=== PATIENT | female | born 1930 | race Caucasian/White ===

== ENCOUNTER 2018-08-22 07:39 | Inpatient (IN) | payer OTHER, BC ==
[2018-08-22 08:02] VITALS: BMI 23.6
[2018-08-22 08:55] LABS: BASO % 1.2 % (0-2.0); EOS % 2.7 % (0-4.5); HEMATOCRIT 30.3 % (32.4-45.2); HEMOGLOBIN 10.7 GM/dL (10.7-15.3); LYMPH % 21.2 % (8-40); MCH 33.4 pg (25.7-33.7); MCHC 35.2 g/dl (32.0-36.0); MEAN PLT VOLUME 8.9 fl (7.5-11.1); MONO % 9.5 % (3.8-10.2); NEUT % 65.4 % (42.8-82.8); PLATELET COUNT 292 K/MM3 (134-434); RBC 3.19 M/mm3 (3.60-5.2); RDW 12.6 % (11.6-15.6); WHITE BLOOD COUNT 5.7 K/mm3 (4.0-10.0)
[2018-08-22 09:09] LABS: ALBUMIN 3.6 g/dl (3.4-5.0); ALK PHOS 109 U/L (45-117); ANION GAP 6 MMOL/L (8-16); BILIRUBIN,TOTAL 0.2 mg/dL (0.2-1); BLOOD UREA NITROGEN 29 mg/dL (7-18); CALCIUM 9.6 mg/dL (8.5-10.1); CHLORIDE 102 mmol/L (98-107); CO2 28 mmol/L (21-32); CREATININE 1.2 mg/dL (0.55-1.3); GLUCOSE,RANDOM 118 mg/dL (74-106); POTASSIUM 4.8 mmol/L (3.5-5.1); SGOT/AST 14 U/L (15-37); SGPT/ALT 19 U/L (13-61); SODIUM 135 mmol/L (136-145); TOT PROT 6.9 g/dl (6.4-8.2)
--- NOTE | 2018-08-22 09:15 | PDOC ---
History of Present Illness <Vipin Travis - Last Filed: 08/22/18 11:21> - General History Source: Patient Exam Limitations: No Limitations - History of Present Illness Initial Comments: 08/22/18 09:16 HPI 87 YOF with h/o recent CAD/[place] s/p PCI on ASA and Plavix (June 2018 at [facility], [place]), HTN, HLD and bleeding PUD presenting with acute onset of BRBPR this morning when she went to make a BM. bright red blood filled the toilet bowl, but no stool. ate regular meal last night, no suspicious food intakes. Denies fever, chills, chest pain, SOB, palpitation, headache, dizziness, weakness, N, V, D, abdominal pain, bladder and bowel problems, leg swelling, No sick contacts or travel. recently started on ASA and Plavix in Jun 2018 when she undergone cardiac cath for STEMI last colonoscopy/sigmoidoscopy ~2 years ago, no abnormal findings. does have h/o PUD in the distant past. Allergies: statins, yeast, rice Past Medical History: CAD/[place] s/p PCI on ASA and Plavix Social history: Lives with family. No smoking. No alcohol. No illicit drugs. Surgical history: PCI PMD: Dr Felipe. ROS Constitutional: no fevers or chills. HEENT: no headache or dizziness. No congestion. No visual/hearing disturbances. CVS: no cp or syncope. Resp: no sob. No cough. Gastrointestinal: no abdominal pain, nausea or vomiting. +rectal bleeding Genitourinary: no urinary sx, hematuria. MUSCULOSKELETAL: No joint pain and swelling. No neck or back pain. SKIN: no redness or skin changes, no discharge, no rash. No wounds. Hematologic: no easy bruising/bleeding. NEUROLOGIC: No headache, dizziness, LOC or altered mental status. No weakness, numbness or tingling. Allergic/Immunologic: no allergies All other systems reviewed and negative, or as documented in HPI. PE: General: Well appearing, awake and alert, NAD. HEENT: NCAT, PERRL, EOMI, clear conjunctiva, anicteric, moist mucus membranes, clear oropharynx, no oral lesions.. Neck: neck supple, FROM Resp: CTAB, normal and even respirations, no respiratory distress CVS: RRR, no murmurs, 2+ peripheral pulses throughout, no peripheral edema Abdomen: soft, NTND, no peritoneal signs. Rectal exam: +macario hematochezia, no hemorrhoids or friable masses internally or externally Back: nontender, normal inspection and ROM MSK: no edema, [place] x4, ROM intact. No clubbing or cyanosis. normal bulk and tone. Neuro: alert, oriented appropriately; no focal neurologic deficits Skin: warm and well perfused, cap refill <2 sec, normal color 08/22/18 09:17 08/22/18 09:41 08/22/18 09:43 <Huong Banda - Last Filed: 08/22/18 11:29> - General Chief Complaint: Rectal Bleed Stated Complaint: RECTAL BLEEDING Time Seen by Provider: 08/22/18 08:44 Past History <Vipin Travis - Last Filed: 08/22/18 11:21> - Past Medical History Anemia: No Asthma: No Cancer: No Cardiac Disorders: Yes (STENT PLACEMENT) CVA: No COPD: No CHF: No Dementia: No Diabetes: No GI Disorders: Yes (duodenal bleed, diverticulosis, polyps) Disorders: No HTN: Yes Hypercholesterolemia: Yes Liver Disease: No Seizures: No Thyroid Disease: No - Surgical History Abdominal Surgery: No Appendectomy: No Cardiac Surgery: Yes (STENT) Cholecystectomy: No Lung Surgery: No Neurologic Surgery: No Orthopedic Surgery: No - Suicide/Smoking/Psychosocial Hx Smoking Status: No Smoking History: Never smoked Have you smoked in the past 12 months: No Number of Cigarettes Smoked Daily: 0 If you are a former smoker, when did you quit?: 40-50 yrs Hx Alcohol Use: No Drug/Substance Use Hx: No Substance Use Type: None Hx Substance Use Treatment: No <Huong Banda - Last Filed: 08/22/18 11:29> - Past Medical History Allergies/Adverse Reactions: Allergies Allergy/AdvReac Type Severity Reaction Status Date / Time red yeast rice Allergy Verified 08/22/18 07:51 Wiljnut-Ahd-Xtp Reductase Allergy Verified 08/22/18 07:51 Inhibitor Home Medications: Ambulatory Orders Aspirin 81 mg PO DAILY 08/22/18 Clopidogrel Bisulfate [Plavix -] 75 mg PO DAILY 08/22/18 Famotidine [Pepcid -] 20 mg PO DAILY 08/22/18 Hydrochlorothiazide [Hctz -] 12.5 mg PO DAILY 08/22/18 Losartan Potassium [Cozaar] 25 mg PO DAILY 08/22/18 Metoprolol Succinate [Toprol Xl] 25 mg PO DAILY 08/22/18 Abd/GI Specific PMHX - Complaint Specific PMHX GERD: No GI Ulcer Disease: No <Huong Banda - Last Filed: 08/22/18 11:29> *Physical Exam - Vital Signs Last Vital Signs Temp Pulse Resp BP Pulse Ox 98.3 F 78 18 132/49 L 98 08/22/18 07:58 08/22/18 07:58 08/22/18 07:58 08/22/18 07:58 08/22/18 08:35 <Vipin Travis - Last Filed: 08/22/18 11:21> - Vital Signs Last Vital Signs Temp Pulse Resp BP Pulse Ox 98.3 F 78 18 132/49 L 98 08/22/18 07:58 08/22/18 07:58 08/22/18 07:58 08/22/18 07:58 08/22/18 08:35 <Huong Banda - Last Filed: 08/22/18 11:29> Moderate Sedation - Procedure Monitoring Vital Signs: Procedure Monitoring Vital Signs Temperature 98.3 F 08/22/18 07:58 Pulse Rate 78 08/22/18 07:58 Respiratory Rate 18 08/22/18 07:58 Blood Pressure 132/49 L 08/22/18 07:58 O2 Sat by Pulse Oximetry (%) 98 08/22/18 08:35 <Vipin Travis - Last Filed: 08/22/18 11:21> - Procedure Monitoring Vital Signs: Procedure Monitoring Vital Signs Temperature 98.3 F 08/22/18 07:58 Pulse Rate 78 08/22/18 07:58 Respiratory Rate 18 08/22/18 07:58 Blood Pressure 132/49 L 08/22/18 07:58 O2 Sat by Pulse Oximetry (%) 98 08/22/18 08:35 <Huong Banda - Last Filed: 08/22/18 11:29> Heart Score/ECG Review - ECG Impressions Normal ECG: No Comment:: 08/22/18 09:54 EKG normal sinus rhythm, no interval abnormalities, wide QRS, ST and T wave segments and morphology normal.TWI in infero, V3 noted, 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, with prior EKG showing Inferior [place] <Huong Bandajassi - Last Filed: 08/22/18 11:29> ED Treatment Course - LABORATORY CBC & Chemistry Diagram: 08/22/18 08:44 08/22/18 08:44 - ADDITIONAL ORDERS Additional order review: Laboratory Results 08/22/18 08/22/18 08/22/18 08:44 08:44 08:44 PT with INR 10.80 INR 0.92 PTT (Actin FS) 26.0 Sodium 135 L Potassium 4.8 Chloride 102 Carbon Dioxide 28 Anion Gap 6 L BUN 29 H Creatinine 1.2 Creat Clearance w eGFR 42.70 Random Glucose 118 H Calcium 9.6 Total Bilirubin 0.2 AST 14 L ALT 19 Alkaline Phosphatase 109 Troponin I < 0.02 Total Protein 6.9 Albumin 3.6 Stool Occult Blood Blood Type A POSITIVE Antibody Screen Negative 08/22/18 08:35 PT with INR INR PTT (Actin FS) Sodium Potassium Chloride Carbon Dioxide Anion Gap BUN Creatinine Creat Clearance w eGFR Random Glucose Calcium Total Bilirubin AST ALT Alkaline Phosphatase Troponin I Total Protein Albumin Stool Occult Blood Positive Blood Type Antibody Screen 08/22/18 08:44 RBC 3.19 L MCV 95.0 MCHC 35.2 RDW 12.6 MPV 8.9 Neutrophils % 65.4 Lymphocytes % 21.2 D Monocytes % 9.5 Eosinophils % 2.7 D Basophils % 1.2 <Vipin Travis - Last Filed: 08/22/18 11:21> - LABORATORY CBC & Chemistry Diagram: 08/22/18 08:44 08/22/18 08:44 - ADDITIONAL ORDERS Additional order review: Laboratory Results 08/22/18 08/22/18 08:44 08:35 Sodium 135 L Potassium 4.8 Chloride 102 Carbon Dioxide 28 Anion Gap 6 L BUN 29 H Creatinine 1.2 Creat Clearance w eGFR 42.70 Random Glucose 118 H Calcium 9.6 Total Bilirubin 0.2 AST 14 L ALT 19 Alkaline Phosphatase 109 Total Protein 6.9 Albumin 3.6 Stool Occult Blood Positive 08/22/18 08:44 RBC 3.19 L MCV 95.0 MCHC 35.2 RDW 12.6 MPV 8.9 Neutrophils % 65.4 Lymphocytes % 21.2 D Monocytes % 9.5 Eosinophils % 2.7 D Basophils % 1.2 <Huong Banda - Last Filed: 08/22/18 11:29> Medical Decision Making - Medical Decision Making Several calls made to [facility] office for admission at 9:42 am, 10:17am , 10:36am and 11:03 am with no call back. Paged Dr. Felipe cell at 11:12 am with no answer. As per first 2 calls to Answering service, hospitalist was to be contacted for admission. Received call back from Dr. Felipe at 11:26am. Case discussed with Dr. Banda. Documentation prepared by Vipin Travis, acting as behavioral medical director for Huong Banda MD. 08/22/18 11:21 <Vipin Travis - Last Filed: 08/22/18 11:21> - Medical Decision Making 08/22/18 09:45 hpi as documented VS reviewed, wnl, normotensive. DDX. UGIB, peptic/duodenal ulcer, gastritis, LGIB, diverticular bleed, AVM, polyp bleed, perf viscus. anemia. electrolyte/metabolic derangements no abdominal sx, no peritoneal findings, no tenderness to palp no cp or sob. labs and lytes reviewed, generally wnl, mild anemia noted from prior, but no transfusion indicated for now. coags normal. txs ordered EKG normal sinus rhythm, no interval abnormalities, wide QRS, ST and T wave segments and morphology normal.TWI in infero, V3 noted, 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, with prior EKG showing Inferior [place] trop neg, no e/o ischemia or demand. GIB likely LGIB with hematochezia, no tarry or melanotic stools on exam, PPI 40mg IV x1 dose, does not require gtt. PIVs x2, keeping NPO GI cs with Dr Salguero, will come to eval. cards cs with Dr Kaiser/Sh[facility] group - should remain on Plavix admitting to telemetry for GIB, suspecting diverticular vs Lower GIB - close monitoring, cards and GI cs, continued workup admit and s/o to Dr Felipe. 08/22/18 11:28 08/22/18 11:28 <Huong Banda - Last Filed: 08/22/18 11:29> *DC/Admit/Observation/Transfer <Vipin Travis - Last Filed: 08/22/18 11:21> - Discharge Dispostion Decision to Admit order: Yes Decision to Admit order Date/Time: 08/22/18 09:55 Decision to Admit Order Category Date Time Status Decision to Admit to Hospital Routine Admission 08/22/18 09:16 Active <Huong Banda - Last Filed: 08/22/18 11:29> Diagnosis at time of Disposition: Hematochezia, GIB (gastrointestinal bleeding) - Discharge Dispostion Condition at time of disposition: Guarded - Referrals Referrals: Cierra Felipe MD [Primary Care Provider] - - Patient Instructions - Post Discharge Activity
[2018-08-22 09:39] LABS: INR 0.92 (0.83-1.09); PROTHROMBIN TIME (PATIENT) 10.8 SEC (9.7-13.0)
[2018-08-22] MEDS ORDERED: PANTOPRAZOLE SODIUM 40 MG VIAL IVPUSH ONE (11:26)
[2018-08-22] MEDS ORDERED: PANTOPRAZOLE SODIUM 40 MG VIAL ONE ×2 (11:40→19:49)
--- NOTE | 2018-08-22 13:00 | EKG ---
Test Reason : Blood Pressure : / mmHG Vent. Rate : 068 BPM Atrial Rate : 068 BPM P-R Int : 158 ms QRS Dur : 116 ms QT Int : 414 ms P-R-T Axes : 067 000 -05 degrees QTc Int : 440 ms NORMAL SINUS RHYTHM LOW VOLTAGE QRS INCOMPLETE RIGHT BUNDLE BRANCH BLOCK CANNOT RULE OUT INFERIOR INFARCT (CITED ON OR BEFORE 06-JUL-2018) ABNORMAL ECG Confirmed by Trae Jeffers MD ([id number]) on 08/22/2018 12:59:51 PM Referred By: Confirmed By:Trae Jeffers MD
--- NOTE | 2018-08-22 13:12 | CON.GI ---
Consult Consult Specialty:: GI: Dr. Betts covering for Dr. Crabtree who resumes care Referred by:: Dr. Cierra Felipe Reason for Consultation:: Rectal bleeding - History of Present Illness Chief Complaint: Rectal bleeding History of Present Illness: 87F admitted for evaluation of rectal bleeding. She states that she had an episode of painless bright red blood per rectum at around 7AM. She came to the ER in a cab. Triage vitals revealed her to be hypertensive with normal pulse rate (however beta blocked). She denied associated chest pain, lightheadedness. She denied recent change in bowel habits, constipation, anorectal pain. In review of the Inductly system, she last had a colonoscopy 2011. It revealed an angulated sigmoid colon, severe sigmoid diverticulosis and led to the removal of serrated recta adenoma. Ms. Sullivan also explains that she was admitted to [facility] in 2006 for evaluiation of severe rectal bleeding. She remembers being admitted to the ICU and being told of a bleeding ulcer. There has been no bleeding since admission. She recently underwent cardiac cath 07/06 that led to placement of a 2nd cardiac stent and has been maintained on ASA/ Plavix. She denies OTC NSAID use and has been maintained on famotidine BID. She complains of easy bruisability since being on ASA/Plavix. She had her initial stent placed 2006. - History Source History Provided By: Patient, Medical Record Limitations to Obtaining History: No Limitations - Past Medical History Cardio/Vascular: Yes: CAD, HTN, Hyperlipdemia Gastrointestinal: Yes: Diverticulosis, Other (History of GI bleed 2006. ? 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 Place of : [facility] History of Recent Travel: No Home Medications - Allergies Allergies/Adverse Reactions: Allergies Allergy/AdvReac Type Severity Reaction Status Date / Time red yeast rice Allergy Verified 08/22/18 07:51 Pxwtxod-Sdj-Rjp Reductase Allergy Verified 08/22/18 07:51 Inhibitor - Home Medications Home Medications: Ambulatory Orders Aspirin 81 mg PO DAILY 08/22/18 Clopidogrel Bisulfate [Plavix -] 75 mg PO DAILY 08/22/18 Famotidine [Pepcid -] 20 mg PO DAILY 08/22/18 Hydrochlorothiazide [Hctz -] 12.5 mg PO DAILY 08/22/18 Losartan Potassium [Cozaar] 25 mg PO DAILY 08/22/18 Metoprolol Succinate [Toprol Xl] 25 mg PO DAILY 08/22/18 Family Disease History - Family Disease History Family Disease History: Other: Father (: 91: old age), Mother (: 62: [place]) , Brother (2, 1 from [place], 1 from colon cancer diagnosed in his 60's), Sister (2, 1 from [place], 1 from brain aneurysm), Son (None), Daughter ( None) Review of Systems - Review of Systems Constitutional: denies: Fever Cardiovascular: denies: Chest Pain Respiratory: denies: SOB Gastrointestinal: reports: Rectal Bleeding. denies: Abdominal Pain, Bloating, Constipation, Diarrhea, Melena, Nausea, Vomiting, Vomiting Blood Physical Exam-GI Vital Signs: Vital Signs Temperature --- 08/22/18 1130 Pulse Rate 78 08/22/18 1130 Respiratory Rate 18 08/22/18 1130 Blood Pressure 180/65 08/22/18 1130 O2 Sat by Pulse Oximetry (%) 99% on RA 08/22/18 1130 Constitutional: Yes: Calm Eyes: No: Sclera Icterus Cardiovascular: Yes: Regular Rate and Rhythm. No: Murmur Respiratory: Yes: CTA Bilaterally Gastrointestinal Inspection: No: Distention, Scars ...Auscultate: Yes: Normoactive Bowel Sounds ...Palpate: Yes: Soft. No: Hepatomegaly, Splenomegaly, Tenderness ...Percussion: No: Tympanitic ...Rectal Exam: Yes: Other (No external lesions, no masses, dark red blood in rectal vault.) Edema: No (No LE edema) Neurological: Yes: Alert, Oriented Labs: CBC, BMP 08/22/18 08:44 08/22/18 08:44 INR, PTT INR 0.92 (0.83-1.09) 08/22/18 08:44 Hepatic Panel Total Bilirubin 0.2 mg/dL (0.2-1) 08/22/18 08:44 AST 14 U/L (15-37) L 08/22/18 08:44 ALT 19 U/L (13-61) 08/22/18 08:44 Alkaline Phosphatase 109 U/L (45-117) 08/22/18 08:44 Albumin 3.6 g/dl (3.4-5.0) 08/22/18 08:44 Problem List - Problems (1) Hematochezia Assessment/Plan: No repeat bleeding episode since admission. Given hemodyamic stability, I suspect the bleeding to be lower GI in origin as opposed to brisk upper GI bleed. Given age and her previous colonoscopy findings, diverticular hemorrhage would be higher in the differential, likely potentiated by dual antiplatelet therapy. I explained this to Ms. Sullivan. I explained that to exclude alternate etiologies such as bleeding polyp, tumor of the intestinal tract such as colon cancer, EGD/Colonoscopy can be undertaken for further intraluminal evaluation. Timing of the procedure will be based on her clinical course. As she has been hemodyamically stable without persistent bleeding, I have placed Ms. Sullivan on a clear liquid diet for potential bowel preparation tomorrow for now: Monitor H/H Admit to monitored setting. If persistent active bleeding / compromised hemodynamics, transfer to ICU and make NPO Repeat CBC ordered for this afternoon as well as AM labs Ms. Sullivan has fresh placed cardiac stent. Per conversation with Dr. Kaiser, if an antiplatelt agent needed to be held, it could be ASA with continued plavix. Will attempt to maintain both antiplatelet agents so as to avoid potential stent thrombosis complications. Code(s): K92.1 - MELENA
[2018-08-22 13:42] LABS: HEMATOCRIT 32.3 % (32.4-45.2); HEMOGLOBIN 11.2 GM/dL (10.7-15.3); MCH 33.5 pg (25.7-33.7); MCHC 34.6 g/dl (32.0-36.0); MEAN CELL VOLUME 96.9 fl (80-96); MEAN PLT VOLUME 9.1 fl (7.5-11.1); PLATELET COUNT 308 K/MM3 (134-434); RBC 3.33 M/mm3 (3.60-5.2); RDW 12.5 % (11.6-15.6); WHITE BLOOD COUNT 6.3 K/mm3 (4.0-10.0)
[2018-08-22] MEDS ORDERED: CLOPIDOGREL BISULFATE 75 MG TABLET (FP) ONE (19:48)
[2018-08-22] MEDS ORDERED: TOPIRAMATE 25 MG TABLET (FP) ONE (19:49)
[2018-08-23 07:53] LABS: BASO % 0.9 % (0-2.0); HEMATOCRIT 29.7 % (32.4-45.2); HEMOGLOBIN 10.2 GM/dL (10.7-15.3); LYMPH % 29.9 % (8-40); MCH 32.8 pg (25.7-33.7); MCHC 34.3 g/dl (32.0-36.0); MEAN CELL VOLUME 95.6 fl (80-96); MEAN PLT VOLUME 8.8 fl (7.5-11.1); MONO % 12.6 % (3.8-10.2); NEUT % 52.6 % (42.8-82.8); PLATELET COUNT 299 K/MM3 (134-434); RBC 3.11 M/mm3 (3.60-5.2); RDW 12.5 % (11.6-15.6); WHITE BLOOD COUNT 4.7 K/mm3 (4.0-10.0)
[2018-08-23 08:19] LABS: ALBUMIN 3.4 g/dl (3.4-5.0); ALK PHOS 100 U/L (45-117); ANION GAP 6 MMOL/L (8-16); BILIRUBIN,TOTAL 0.3 mg/dL (0.2-1); BLOOD UREA NITROGEN 23 mg/dL (7-18); CALCIUM 9.2 mg/dL (8.5-10.1); CHLORIDE 102 mmol/L (98-107); CO2 29 mmol/L (21-32); CREATININE 0.9 mg/dL (0.55-1.3); GLUCOSE,RANDOM 97 mg/dL (74-106); POTASSIUM 4.5 mmol/L (3.5-5.1); SGOT/AST 12 U/L (15-37); SGPT/ALT 19 U/L (13-61); SODIUM 137 mmol/L (136-145); TOT PROT 6.5 g/dl (6.4-8.2)
--- NOTE | 2018-08-23 09:39 | CON.CARD ---
Consult Consult Specialty:: Cardiology Referred by:: Emergency Medicine Reason for Consultation:: DAPT management - History of Present Illness Chief Complaint: Hematochezia History of Present Illness: 87 yo with h/o CAD s/p BMS distal RCA 2006 recent inferior wall [place] s/p Medtronic Mauri 2.75 x 18 mm VLADIMIR distal RCA 06/2018 LV fxn preserved, normal LVEDP, mild inferior HK, PUD, hyperlipidemia with multiple medication intolerances but tolerates Livalo, presented for painless rectal bleeding. In 2011, colonoscopy showed angulated sigmoid colon, severe sigmoid diverticulosis and led to the removal of serrated rectal adenoma. Ms. Sullivan reports that she was admitted to [facility] in 2006 for evaluiation of severe rectal bleeding and also has h/o PUD. She denies OTC NSAID use and has been maintained on famotidine BID. She complains of easy bruisability since being on ASA/Plavix. Hgb stable, denies chest pain, dyspnea, near or true syncope, palpitations, orthopnea, PND or LE edema. - History Source History Provided By: Patient Limitations to Obtaining History: No Limitations - Past Medical History Cardio/Vascular: Yes: CAD, HTN, Hyperlipdemia Gastrointestinal: Yes: Diverticulosis, Other (History of GI bleed 2006. ? 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 History of Recent Travel: No Home Medications - Allergies Allergies/Adverse Reactions: Allergies Allergy/AdvReac Type Severity Reaction Status Date / Time red yeast rice Allergy Verified 08/22/18 07:51 Pwgdvcs-Ifi-Uwa Reductase Allergy Verified 08/22/18 07:51 Inhibitor - Home Medications Home Medications: Ambulatory Orders Aspirin 81 mg PO DAILY 08/22/18 Clopidogrel Bisulfate [Plavix -] 75 mg PO DAILY 08/22/18 Famotidine [Pepcid -] 20 mg PO DAILY 08/22/18 Hydrochlorothiazide [Hctz -] 12.5 mg PO DAILY 08/22/18 Losartan Potassium [Cozaar] 25 mg PO DAILY 08/22/18 Metoprolol Succinate [Toprol Xl] 25 mg PO DAILY 08/22/18 Family Disease History - Family Disease History Family Disease History: Other: Father (: 91: old age), Mother (: 62: [place]) , Brother (2, 1 from [place], 1 from colon cancer diagnosed in his 60's), Sister (2, 1 from [place], 1 from brain aneurysm), Son (None), Daughter ( None) Review of Systems - Review of Systems Gastrointestinal: reports: Rectal Bleeding Vital Signs: Vital Signs Temperature 97.4 F L 08/23/18 07:14 Pulse Rate 79 08/23/18 07:14 Respiratory Rate 20 08/23/18 07:14 Blood Pressure 122/55 L 08/23/18 07:14 O2 Sat by Pulse Oximetry (%) 98 08/23/18 07:14 Constitutional: Yes: No Distress, Calm Neck: Yes: Supple Respiratory: Yes: Regular, CTA Bilaterally Gastrointestinal: Yes: Normal Bowel Sounds, Soft Cardiovascular: Yes: Regular Rate and Rhythm JVD: No Carotid Bruit: No Heart Sounds: Yes: S1, S2 Edema: No - Other Data Labs, Other Data: CBC, BMP 08/23/18 06:30 08/23/18 06:30 INR, PTT INR 0.92 (0.83-1.09) 08/22/18 08:44 Troponin, BNP 08/22/18 08:44 Troponin I < 0.02 Troponin, BNP 08/22/18 08:44 Troponin I < 0.02 NSR @ 68 IRBBB, old inferior infarct Problem List - Problems (1) Hypertensive cardiovascular disease Code(s): I11.9 - HYPERTENSIVE HEART DISEASE WITHOUT HEART FAILURE Qualifiers: Heart failure presence: without heart failure Qualified Code(s): I11.9 - Hypertensive heart disease without heart failure (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 Pre-procedure cardiovascular evaluation prior to EGD/colonoscopy 2. Hematochezia suspect diverticular bleed 3. Previous h/o bleeding PUD 4. CAD s/p IWMI s/p VLADIMIR distal RCA 06/2018 5. Hyperlipidemia with multiple drug intolerances, but does tolerate Livalo 2 qod 6. Hypertensive cardiovascular disease P:1. Monitor Hgb and transfuse as needed 2. Given recent LHC and revascularization without recurrent symptoms of acute coronary syndrome, decompensated CHF or malignant arrhythmia, may proceed with EGD and colonoscopy from CV-standpoint without further testing. Regarding DAPT management, may d/c ASA if an antiplatelet agent needs to be held with continued Plavix 75 qd to decrease stent thrombosis risk 3. Continue Plavix 75 qd, Protonix 40 qd, losartan 25 qd, Toprol XL 25 qd 4. Thank you for consultative opportunity
[2018-08-23] MEDS: metoPROLOL SUCCINATE 25 MG TAB.SR.24H (FP) PO SCH (10:52)
[2018-08-23] MEDS: PANTOPRAZOLE SODIUM 40 MG VIAL IVPUSH SCH (10:52)
[2018-08-23] MEDS: CLOPIDOGREL BISULFATE 75 MG TABLET (FP) PO SCH (10:52)
--- NOTE | 2018-08-23 12:00 | PN ---
GI Progress Note Subjective: GI NOte: Dr Betts's consult is appreciated. NO bleeding since yesterday. Had no pain. Discussed the as with Dr. Vegas who has granted the okay to proceed with EGD and colonoscopy . I have discussed both procedures in detail with Shari. I have informed her of the potential for such complications as perforation and hemorrhage and the fact that I will not be able to remove polyps or take biopsies since her Plavix cannot be interrupted. She tells me that she had a recent course of Indocin for a gout flare. She has granted consent for both procedures which I will do tomorrow. - Objective Vital Signs: Vital Signs Temperature 98.2 F 08/23/18 10:55 Pulse Rate 89 08/23/18 10:55 Respiratory Rate 18 08/23/18 10:55 Blood Pressure 134/56 L 08/23/18 10:55 O2 Sat by Pulse Oximetry (%) 98 08/23/18 10:55 Laboratory Tests 08/22/18 08/22/18 08/23/18 08:44 13:32 06:30 Hgb 10.7 11.2 10.2 L Constitutional: No Distress ...Auscultate: Yes: Normoactive Bowel Sounds ...Palpate: Yes: Soft, Other (nontender) Labs: CBC, BMP 08/23/18 06:30 08/23/18 06:30 INR, PTT INR 0.92 (0.83-1.09) 08/22/18 08:44 Assessment/Plan Impression: Resolving diverticular bleed but other etiologies need to be exclude as she continues to require A/C Cardiologically cleared for endoscopies by Dr Kaiser Plan: -- Prep today for EGD and colonoscopy tomorrow, informed consent obtained Problem List - Problems (1) GIB (gastrointestinal bleeding) Assessment/Plan: I agree that a diverticular bleed is most likely but bleeding AVMs and ischemic colitis are still possible. Given her Hb stability this may prove to be hemorrhoidal in origin. Given her Indocin usage and previous peptic ulcer bleed , both an EGD and colonoscopy will be undertaken tomorrow. Code(s): K92.2 - GASTROINTESTINAL HEMORRHAGE, UNSPECIFIED (2) History of adenomatous polyp of colon Code(s): Z86.010 - PERSONAL HISTORY OF COLONIC POLYPS (3) Diverticulosis Code(s): K57.90 - DVRTCLOS OF INTEST, PART UNSP, W/O PERF OR ABSCESS W/O BLEED (4) Hematochezia Code(s): K92.1 - MELENA (6) S/P coronary artery stent placement Code(s): Z95.5 - PRESENCE OF CORONARY ANGIOPLASTY IMPLANT AND GRAFT
[2018-08-23] MEDS ORDERED: PEG3350/SOD SULF,BICARB,CL/KCL 4,000 ML SOLN.RECON PO ONE (12:04)
--- NOTE | 2018-08-23 13:49 | HP ---
Admitting History and Physical - Primary Care Physician PCP: Cierra Felipe - Admission History of Present Illness: patient seen and examined in the emergency room Chart reviewed As per emergency room records 87 YOF with h/o recent CAD/PR s/p PCI on ASA and Plavix (June 2018 at [facility]), HTN, HLD and bleeding PUD presenting with acute onset of BRBPR this morning when she went to make a BM. bright red blood filled the toilet bowl, but no stool. ate regular meal last night, no suspicious food intakes. Denies fever, chills, chest pain, SOB, palpitation, headache, dizziness, weakness, N, V, D, abdominal pain, bladder and bowel problems, leg swelling, No sick contacts or travel. recently started on ASA and Plavix in Jun 2018 when she undergone cardiac cath for STEMI last colonoscopy/sigmoidoscopy ~2 years ago, no abnormal findings. does have h/o PUD in the distant past. Allergies: statins, yeast, rice Past Medical History: CAD/PR s/p PCI on ASA and Plavix Social history: Lives with family. No smoking. No alcohol. No illicit drugs. all above confirmed with patient Patient at present comfortable Patient also recently taken NSAIDs due to knee pain At present not bleeding denies abdominal pain All consults noted---Seen by cardiology and GI scheduled for endoscopy tomorrow History Source: Patient Limitations to Obtaining History: No Limitations - Past Medical History Cardiovascular: Yes: CAD, HTN, Hyperlipdemia Gastrointestinal: Yes: Diverticulosis, Other (History of GI bleed 2006. ? 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 History of Recent Travel: No Home Medications - Allergies Allergies/Adverse Reactions: Allergies Allergy/AdvReac Type Severity Reaction Status Date / Time red yeast rice Allergy Verified 08/22/18 07:51 Wnuduyf-Gmh-Sum Reductase Allergy Verified 08/22/18 07:51 Inhibitor - Home Medications Home Medications: Ambulatory Orders Aspirin 81 mg PO DAILY 08/22/18 Clopidogrel Bisulfate [Plavix -] 75 mg PO DAILY 08/22/18 Famotidine [Pepcid -] 20 mg PO DAILY 08/22/18 Hydrochlorothiazide [Hctz -] 12.5 mg PO DAILY 08/22/18 Losartan Potassium [Cozaar] 25 mg PO DAILY 08/22/18 Metoprolol Succinate [Toprol Xl] 25 mg PO DAILY 08/22/18 Family Disease History - Family Disease History Family Disease History: Other: Father (: 91: old age), Mother (: 62: [place]) , Brother (2, 1 from [place], 1 from colon cancer diagnosed in his 60's), Sister (2, 1 from [place], 1 from brain aneurysm), Son (None), Daughter ( None) Review of Systems - Review of Systems Constitutional: reports: No Symptoms Eyes: reports: No Symptoms HENT: reports: No Symptoms Neck: reports: No Symptoms Cardiovascular: reports: No Symptoms Respiratory: reports: No Symptoms Gastrointestinal: reports: Rectal Bleeding Psychiatric: reports: Anxiety (mild anxiety) Physical Examination Vital Signs: Vital Signs Temperature 98.2 F 08/23/18 10:55 Pulse Rate 89 08/23/18 10:55 Respiratory Rate 18 08/23/18 10:55 Blood Pressure 134/56 L 08/23/18 10:55 O2 Sat by Pulse Oximetry (%) 98 08/23/18 10:55 Constitutional: Yes: No Distress, Calm, Anxious (mild anxiety) Eyes: Yes: Conjunctiva Clear Neck: Yes: Supple Cardiovascular: Yes: Regular Rate and Rhythm Respiratory: Yes: CTA Bilaterally Gastrointestinal: Yes: Normal Bowel Sounds, Soft Edema: No Neurological: Yes: WNL, Alert Psychiatric: Yes: Alert Labs: CBC, BMP 08/23/18 06:30 08/23/18 06:30 Imaging - Results Chest X-ray: Report Reviewed X-ray: Report Reviewed EKG: Report Reviewed Problem List - Problems (1) GIB (gastrointestinal bleeding) Code(s): K92.2 - GASTROINTESTINAL HEMORRHAGE, UNSPECIFIED (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 Assessment/Plan clinically stable monitor closely in telemetry Plavix to be continued with caution--- Due to recent stenting--- as per cardiology recommendation Monitor CBC Scheduled for endoscopy--tomorrow Medically stable for same Will follow Discussed with nursing staff also
[2018-08-23] MEDS ORDERED: BISACODYL 5 MG TABLET.DR (FP) PO ONE (18:00)
[2018-08-23 18:45] LABS: BASO % 0.8 % (0-2.0); EOS % 1.2 % (0-4.5); HEMATOCRIT 27.6 % (32.4-45.2); HEMOGLOBIN 9.7 GM/dL (10.7-15.3); MCH 33.6 pg (25.7-33.7); MCHC 34.9 g/dl (32.0-36.0); MEAN CELL VOLUME 96.1 fl (80-96); MEAN PLT VOLUME 8.7 fl (7.5-11.1); MONO % 8.2 % (3.8-10.2); NEUT % 70.8 % (42.8-82.8); PLATELET COUNT 289 K/MM3 (134-434); RBC 2.88 M/mm3 (3.60-5.2); RDW 12.4 % (11.6-15.6)
--- NOTE | 2018-08-23 23:06 | PN ---
Progress Note (short form) - Note Progress Note: GI NOte: Bowel prep cancelled after brisk LGI bleeding developed after 3 cups. A stat CTA was done and discussed with Dr. Ellis. It is inconclusive for a bleed with areas in the sigmoid and descending colon that he feels are artifactual. Stat Hb was 9.8. Will keep NPO and observe closely. Procedures cancelled. Problem List - Problems (1) GIB (gastrointestinal bleeding) Code(s): K92.2 - GASTROINTESTINAL HEMORRHAGE, UNSPECIFIED (2) History of adenomatous polyp of colon Code(s): Z86.010 - PERSONAL HISTORY OF COLONIC POLYPS (3) Diverticulosis Code(s): K57.90 - DVRTCLOS OF INTEST, PART UNSP, W/O PERF OR ABSCESS W/O BLEED (4) Hematochezia Code(s): K92.1 - MELENA (6) S/P coronary artery stent placement Code(s): Z95.5 - PRESENCE OF CORONARY ANGIOPLASTY IMPLANT AND GRAFT
[2018-08-24] MEDS: DEXTROSE 5%-0.45% SALINE 1,000 ML IV SCH ×2 (10:41→18:45)
[2018-08-24] MEDS: CLOPIDOGREL BISULFATE 75 MG TABLET (FP) PO SCH (10:46)
[2018-08-24] MEDS: metoPROLOL SUCCINATE 25 MG TAB.SR.24H (FP) PO SCH (10:47)
[2018-08-24] MEDS: PANTOPRAZOLE SODIUM 40 MG VIAL IVPUSH SCH (10:47)
--- NOTE | 2018-08-24 11:29 | PN ---
Progress Note (short form) - Note Progress Note: Events noted had bleeding last night resolved on its own no abd pain no distress Vital Signs - 24 hr 08/23/18 08/23/18 08/24/18 19:00 23:41 01:50 Temperature 97.7 F 98.1 F Pulse Rate 68 78 Respiratory 18 18 Rate Blood Pressure 137/61 132/57 L O2 Sat by Pulse 97 Oximetry (%) 08/24/18 08/24/18 08/24/18 06:00 07:00 09:00 Temperature 97.9 F Pulse Rate 82 Respiratory 18 Rate Blood Pressure 138/74 O2 Sat by Pulse 95 95 Oximetry (%) 08/24/18 08/24/18 10:00 13:35 Temperature 97.5 F L 97.9 F Pulse Rate 88 79 Respiratory 20 18 Rate Blood Pressure 132/76 142/59 L O2 Sat by Pulse Oximetry (%) Current Medications Generic Name Dose Route Start Last Admin Trade Name Freq PRN Reason Stop Dose Admin Bisacodyl 20 mg 08/26/18 18:00 Dulcolax - PO 08/26/18 18:01 ONCE ONE Clopidogrel Bisulfate 75 mg 08/23/18 10:00 08/24/18 10:46 Plavix - PO 75 mg DAILY RENE Administration Dextrose/Sodium Chloride 1,000 mls @ 125 mls/hr 08/23/18 18:30 08/24/18 10:41 D5-1/2ns - IV 125 mls/hr ASDIR RENE Administration Metoprolol Succinate 25 mg 08/23/18 10:00 08/24/18 10:47 Toprol Xl - PO 25 mg DAILY RENE Administration Pantoprazole Sodium 40 mg 08/23/18 10:00 08/24/18 10:47 Protonix Iv IVPUSH 40 mg DAILY RENE Administration Polyethylene Glycol 17 gm 08/24/18 22:00 Miralax (For Daily Use) - PO BID RENE Polyethylene Glycol/Electrolytes 4,000 ml 08/26/18 09:00 Golytely Solution - PO 08/26/18 09:01 ONCE ONE Laboratory Results - last 24 hr 08/23/18 08/24/18 08/24/18 18:00 13:20 13:20 WBC 5.0 4.8 RBC 2.88 L 2.45 L Hgb 9.7 L 8.1 L Hct 27.6 L 23.5 L MCV 96.1 H 95.7 MCH 33.6 32.8 MCHC 34.9 34.3 RDW 12.4 12.4 Plt Count 289 290 MPV 8.7 8.5 Absolute Neuts (auto) 3.5 2.5 Neutrophils % 70.8 D 52.9 D Lymphocytes % 19.0 D 30.8 D Monocytes % 8.2 12.1 H Eosinophils % 1.2 3.3 D Basophils % 0.8 0.9 Nucleated RBC % 0 0 PT with INR 12.20 INR 1.03 Sodium Potassium Chloride Carbon Dioxide Anion Gap BUN Creatinine Creat Clearance w eGFR Random Glucose Calcium 08/24/18 13:20 WBC RBC Hgb Hct MCV MCH MCHC RDW Plt Count MPV Absolute Neuts (auto) Neutrophils % Lymphocytes % Monocytes % Eosinophils % Basophils % Nucleated RBC % PT with INR INR Sodium 133 L Potassium 3.7 Chloride 99 Carbon Dioxide 28 Anion Gap 7 L BUN 13 Creatinine 1.1 Creat Clearance w eGFR 47.21 Random Glucose 195 H Calcium 8.5 S1 S2 RRR No pallor Lungs clear Abd- soft, NT no edema PLAN HCT stable Keep NPO CTA abd noted possible diverticular bleed GI follow up IV fluids Problem List - Problems (1) Diverticulosis Code(s): K57.90 - DVRTCLOS OF INTEST, PART UNSP, W/O PERF OR ABSCESS W/O BLEED (2) GIB (gastrointestinal bleeding) Code(s): K92.2 - GASTROINTESTINAL HEMORRHAGE, UNSPECIFIED (3) Hypertensive cardiovascular disease Code(s): I11.9 - HYPERTENSIVE HEART DISEASE WITHOUT HEART FAILURE Qualifiers: Heart failure presence: without heart failure Qualified Code(s): I11.9 - Hypertensive heart disease without heart failure (4) Hyperlipidemia Code(s): E78.5 - HYPERLIPIDEMIA, UNSPECIFIED Qualifiers: Hyperlipidemia type: pure hypercholesterolemia Qualified Code(s): E78.00 - Pure hypercholesterolemia, unspecified; E78.0 - Pure hypercholesterolemia (5) S/P coronary artery stent placement Code(s): Z95.5 - PRESENCE OF CORONARY ANGIOPLASTY IMPLANT AND GRAFT
--- NOTE | 2018-08-24 12:09 | PN ---
Progress Note, Physician Chief Complaint: Events noted Not in distress History of Present Illness: Patient was seen and examined. Awake and alert. Chart was reviewed Denies chest pain, SOB or palpitations - Current Medication List Current Medications: Active Medications Clopidogrel Bisulfate (Plavix -) 75 mg PO DAILY [facility] Last Admin: 08/24/18 10:46 Dose: 75 mg Dextrose/Sodium Chloride (D5-1/2ns -) 1,000 mls @ 125 mls/hr IV ASDIR [facility] Last Admin: 08/24/18 10:41 Dose: 125 mls/hr Metoprolol Succinate (Toprol Xl -) 25 mg PO DAILY [facility] Last Admin: 08/24/18 10:47 Dose: 25 mg Pantoprazole Sodium (Protonix Iv) 40 mg IVPUSH DAILY [facility] Last Admin: 08/24/18 10:47 Dose: 40 mg - Objective Vital Signs: Vital Signs Temperature 97.9 F 08/24/18 06:00 Pulse Rate 82 08/24/18 06:00 Respiratory Rate 18 08/24/18 06:00 Blood Pressure 138/74 08/24/18 06:00 O2 Sat by Pulse Oximetry (%) 95 08/24/18 07:00 Eyes: Yes: PERRL HENT: Yes: Atraumatic Neck: Yes: Supple Cardiovascular: Yes: Regular Rate and Rhythm, S1, S2 Respiratory: Yes: CTA Bilaterally Gastrointestinal: Yes: Normal Bowel Sounds, Soft. No: Tenderness Edema: No Additional Findings/Remarks: Review of Systems Constitutional: denies Chills or Fever Respiratory: denies Cough or Sputum Production Cardiovascular: denies: chest pain, SOB, palpitations Gastrointestinal: denies Nausea, Vomiting, Diarrhea, Constipation or Abdominal Pain Genitourinary: denies Frequency or Urgency Musculoskeletal: No symptoms reported Labs: CBC, BMP 08/23/18 18:00 08/23/18 06:30 INR, PTT INR 0.92 (0.83-1.09) 08/22/18 08:44 Problem List - Problems (1) Diverticulosis Code(s): K57.90 - DVRTCLOS OF INTEST, PART UNSP, W/O PERF OR ABSCESS W/O BLEED (2) GIB (gastrointestinal bleeding) Code(s): K92.2 - GASTROINTESTINAL HEMORRHAGE, UNSPECIFIED (3) Hematochezia Code(s): K92.1 - MELENA (4) Hypertensive cardiovascular disease Code(s): I11.9 - HYPERTENSIVE HEART DISEASE WITHOUT HEART FAILURE Qualifiers: Heart failure presence: without heart failure Qualified Code(s): I11.9 - Hypertensive heart disease without heart failure (5) Old inferior wall myocardial infarction Code(s): I25.2 - OLD MYOCARDIAL INFARCTION (6) Pre-procedural cardiovascular examination Code(s): Z01.810 - ENCOUNTER FOR PREPROCEDURAL CARDIOVASCULAR EXAMINATION (7) Hyperlipidemia Code(s): E78.5 - HYPERLIPIDEMIA, UNSPECIFIED Qualifiers: Hyperlipidemia type: pure hypercholesterolemia Qualified Code(s): E78.00 - Pure hypercholesterolemia, unspecified; E78.0 - Pure hypercholesterolemia (8) S/P coronary artery stent placement Code(s): Z95.5 - PRESENCE OF CORONARY ANGIOPLASTY IMPLANT AND GRAFT Assessment/Plan 1. Pre-procedure cardiovascular evaluation prior to EGD/colonoscopy 2. Hematochezia suspect diverticular bleed with history of PUD 3. CAD s/p IWMI s/p VLADIMIR distal RCA 06/2018 4. Hyperlipidemia with multiple drug intolerances except Livalo 5. Hypertensive cardiovascular disease PLAN: 1. Monitor Hgb and transfuse as needed 2. No absolute contraindication proceeding with EGD/colonoscopy in view of absence of ischemic symptoms, decompensated congestive heart failure or malignant arrhythmias. Regarding DAPT management, continue Plavix 75 mg QD to decrease stent thrombosis risk. ASA has been stopped, but should be restarted after GI work up 3. Continue Plavix 75 mg QD, Protonix 40 qd, Losartan 25 qd and Toprol XL 25 qd Further plans are to follow Mac Berger MD
[2018-08-24 14:51] LABS: BASO % 0.9 % (0-2.0); EOS % 3.3 % (0-4.5); HEMATOCRIT 23.5 % (32.4-45.2); HEMOGLOBIN 8.1 GM/dL (10.7-15.3); LYMPH % 30.8 % (8-40); MCH 32.8 pg (25.7-33.7); MCHC 34.3 g/dl (32.0-36.0); MEAN CELL VOLUME 95.7 fl (80-96); MEAN PLT VOLUME 8.5 fl (7.5-11.1); MONO % 12.1 % (3.8-10.2); NEUT % 52.9 % (42.8-82.8); PLATELET COUNT 290 K/MM3 (134-434); RBC 2.45 M/mm3 (3.60-5.2); RDW 12.4 % (11.6-15.6); WHITE BLOOD COUNT 4.8 K/mm3 (4.0-10.0)
[2018-08-24 15:01] LABS: INR 1.03 (0.83-1.09); PROTHROMBIN TIME (PATIENT) 12.2 SEC (9.7-13.0)
[2018-08-24 15:18] LABS: ANION GAP 7 MMOL/L (8-16); BLOOD UREA NITROGEN 13 mg/dL (7-18); CALCIUM 8.5 mg/dL (8.5-10.1); CHLORIDE 99 mmol/L (98-107); CO2 28 mmol/L (21-32); CREATININE 1.1 mg/dL (0.55-1.3); GLUCOSE,RANDOM 195 mg/dL (74-106); POTASSIUM 3.7 mmol/L (3.5-5.1); SODIUM 133 mmol/L (136-145)
--- NOTE | 2018-08-24 18:10 | PN ---
GI Progress Note Subjective: GI NOte: NO further bleeding. No abdominal pain. Tolerating liquids - Objective Vital Signs: Vital Signs Temperature 97.9 F 08/24/18 13:35 Pulse Rate 79 08/24/18 13:35 Respiratory Rate 18 08/24/18 13:35 Blood Pressure 142/59 L 08/24/18 13:35 O2 Sat by Pulse Oximetry (%) 95 08/24/18 09:00 Laboratory Tests 08/22/18 08/22/18 08/23/18 08:44 13:32 06:30 Hgb 10.7 11.2 10.2 L 08/23/18 08/24/18 18:00 13:20 Hgb 9.7 L 8.1 L Constitutional: Calm ...Auscultate: Yes: Normoactive Bowel Sounds ...Palpate: Yes: Soft, Other (nontender) Labs: CBC, BMP 08/24/18 13:20 08/24/18 13:20 INR, PTT INR 1.03 (0.83-1.09) 08/24/18 13:20 Assessment/Plan Impression: Resolved recurrent diverticular bleed after prep attempt Cardiologically cleared for endoscopies by Dr Kaiser and now by Dr Berger Plan: -- Trial of solids. If no rebleeding will then prep on for EGD and colonoscopy on Thursday Problem List - Problems (1) GIB (gastrointestinal bleeding) Assessment/Plan: Suspect resolved diverticular bleed but bleeding AVMs and ischemic colitis are still possible. Given her brisk bleeding yesterday will defer prep until and have scheduled EGD and colonoscopy on 08/27 Code(s): K92.2 - GASTROINTESTINAL HEMORRHAGE, UNSPECIFIED (2) History of adenomatous polyp of colon Code(s): Z86.010 - PERSONAL HISTORY OF COLONIC POLYPS (3) Diverticulosis Code(s): K57.90 - DVRTCLOS OF INTEST, PART UNSP, W/O PERF OR ABSCESS W/O BLEED (4) Hematochezia Code(s): K92.1 - MELENA (6) S/P coronary artery stent placement Code(s): Z95.5 - PRESENCE OF CORONARY ANGIOPLASTY IMPLANT AND GRAFT
[2018-08-24] MEDS: POLYETHYLENE GLYCOL 3350 119 GM BTL PO SCH (21:49)
[2018-08-25 07:00] LABS: HEMATOCRIT 18.8 % (32.4-45.2); MCH 32.9 pg (25.7-33.7); MCHC 34.6 g/dl (32.0-36.0); MEAN CELL VOLUME 95.1 fl (80-96); MEAN PLT VOLUME 8.6 fl (7.5-11.1); PLATELET COUNT 249 K/MM3 (134-434); RBC 1.97 M/mm3 (3.60-5.2); WHITE BLOOD COUNT 4.5 K/mm3 (4.0-10.0)
[2018-08-25 07:39] LABS: HEMOGLOBIN 6.5 GM/dL (10.7-15.3)
[2018-08-25 08:41] LABS: RETICULOCYTES 1.19 % (0.5-1.5)
[2018-08-25] MEDS: CLOPIDOGREL BISULFATE 75 MG TABLET (FP) PO SCH (09:01)
[2018-08-25] MEDS: metoPROLOL SUCCINATE 25 MG TAB.SR.24H (FP) PO SCH (09:01)
[2018-08-25] MEDS: PANTOPRAZOLE SODIUM 40 MG VIAL IVPUSH SCH (09:01)
[2018-08-25] MEDS: POLYETHYLENE GLYCOL 3350 119 GM BTL PO SCH ×2 (09:01→22:59)
[2018-08-25] MEDS ORDERED: DEXTROSE 5%-0.45% SALINE 1,000 ML IV SCH (10:39)
--- NOTE | 2018-08-25 10:39 | PN ---
Progress Note (short form) - Note Progress Note: Events noted had bleeding last night and today morning feels light headed, nervous no abd pain no chest pain or SOB Vital Signs - 24 hr 08/24/18 08/24/18 08/24/18 13:35 15:00 18:00 Temperature 97.9 F 98 F Pulse Rate 79 83 Respiratory 18 18 Rate Blood Pressure 142/59 L 128/62 O2 Sat by Pulse 95 Oximetry (%) 08/24/18 08/24/18 08/25/18 21:00 22:00 02:00 Temperature 98.3 F 97.8 F Pulse Rate 83 74 Respiratory 18 18 Rate Blood Pressure 108/53 L 107/49 L O2 Sat by Pulse 98 Oximetry (%) Current Medications Generic Name Dose Route Start Last Admin Trade Name Freq PRN Reason Stop Dose Admin Bisacodyl 20 mg 08/26/18 18:00 Dulcolax - PO 08/26/18 18:01 ONCE ONE Clopidogrel Bisulfate 75 mg 08/23/18 10:00 08/25/18 09:01 Plavix - PO 75 mg DAILY RENE Administration Dextrose/Sodium Chloride 1,000 mls @ 125 mls/hr 08/23/18 18:30 08/24/18 18:45 D5-1/2ns - IV 125 mls/hr ASDIR RENE Administration Metoprolol Succinate 25 mg 08/23/18 10:00 08/25/18 09:01 Toprol Xl - PO 25 mg DAILY RENE Administration Pantoprazole Sodium 40 mg 08/23/18 10:00 08/25/18 09:01 Protonix Iv IVPUSH 40 mg DAILY RENE Administration Polyethylene Glycol 17 gm 08/24/18 22:00 08/25/18 09:01 Miralax (For Daily Use) - PO Not Given BID RENE Polyethylene Glycol/Electrolytes 4,000 ml 08/26/18 09:00 Golytely Solution - PO 08/26/18 09:01 ONCE ONE Laboratory Results - last 24 hr 08/24/18 08/24/18 08/24/18 13:20 13:20 13:20 WBC 4.8 RBC 2.45 L Hgb 8.1 L Hct 23.5 L MCV 95.7 MCH 32.8 MCHC 34.3 RDW 12.4 Plt Count 290 MPV 8.5 Absolute Neuts (auto) 2.5 Neutrophils % 52.9 D Lymphocytes % 30.8 D Monocytes % 12.1 H Eosinophils % 3.3 D Basophils % 0.9 Nucleated RBC % 0 Retic Count PT with INR 12.20 INR 1.03 Sodium 133 L Potassium 3.7 Chloride 99 Carbon Dioxide 28 Anion Gap 7 L BUN 13 Creatinine 1.1 Creat Clearance w eGFR 47.21 Random Glucose 195 H Calcium 8.5 Ferritin Blood Type Antibody Screen Crossmatch 08/25/18 08/25/18 08/25/18 06:30 06:30 06:30 WBC 4.5 RBC 1.97 L Hgb 6.5 L* Hct 18.8 L D MCV 95.1 MCH 32.9 MCHC 34.6 RDW 12.0 Plt Count 249 MPV 8.6 Absolute Neuts (auto) Neutrophils % Lymphocytes % Monocytes % Eosinophils % Basophils % Nucleated RBC % Retic Count 1.19 Cancelled PT with INR INR Sodium Potassium Chloride Carbon Dioxide Anion Gap BUN Creatinine Creat Clearance w eGFR Random Glucose Calcium Ferritin 114.0 Blood Type Antibody Screen Crossmatch 08/25/18 08:35 WBC RBC Hgb Hct MCV MCH MCHC RDW Plt Count MPV Absolute Neuts (auto) Neutrophils % Lymphocytes % Monocytes % Eosinophils % Basophils % Nucleated RBC % Retic Count PT with INR INR Sodium Potassium Chloride Carbon Dioxide Anion Gap BUN Creatinine Creat Clearance w eGFR Random Glucose Calcium Ferritin Blood Type A POSITIVE Antibody Screen Negative Crossmatch See Detail S1 S2 RRR No pallor Lungs clear Abd- soft, NT no edema PLAN rebled again - decreased HCT -- ordered 2 units of PRBC liquid diet diverticular bleed GI follow up IV fluids transfuse as tolerated pt still on Plavix Problem List - Problems (1) Diverticulosis Code(s): K57.90 - DVRTCLOS OF INTEST, PART UNSP, W/O PERF OR ABSCESS W/O BLEED (2) GIB (gastrointestinal bleeding) Code(s): K92.2 - GASTROINTESTINAL HEMORRHAGE, UNSPECIFIED (3) Hypertensive cardiovascular disease Code(s): I11.9 - HYPERTENSIVE HEART DISEASE WITHOUT HEART FAILURE Qualifiers: Heart failure presence: without heart failure Qualified Code(s): I11.9 - Hypertensive heart disease without heart failure (4) Hyperlipidemia Code(s): E78.5 - HYPERLIPIDEMIA, UNSPECIFIED Qualifiers: Hyperlipidemia type: pure hypercholesterolemia Qualified Code(s): E78.00 - Pure hypercholesterolemia, unspecified; E78.0 - Pure hypercholesterolemia (5) S/P coronary artery stent placement Code(s): Z95.5 - PRESENCE OF CORONARY ANGIOPLASTY IMPLANT AND GRAFT
--- NOTE | 2018-08-25 10:55 | PN ---
GI Progress Note Subjective: GI NOte: Had rectal bleeding last night and again this AM with Hb drop to 6.5. Blood has been ordered. Will cut solids back to liquids. No cramps or paon - Objective Vital Signs: Vital Signs Temperature 97.8 F 08/25/18 02:00 Pulse Rate 74 08/25/18 02:00 Respiratory Rate 18 08/25/18 02:00 Blood Pressure 107/49 L 08/25/18 02:00 O2 Sat by Pulse Oximetry (%) 98 08/24/18 21:00 Laboratory Tests 08/24/18 08/25/18 13:20 06:30 Hgb 8.1 L 6.5 L* Constitutional: Calm ...Auscultate: Yes: Normoactive Bowel Sounds ...Palpate: Yes: Soft, Other (nontender) Labs: CBC, BMP 08/25/18 06:30 08/24/18 13:20 INR, PTT INR 1.03 (0.83-1.09) 08/24/18 13:20 Assessment/Plan Impression: Suspec recurring diverticular bleeding due to Plavix effect Cardiologically cleared for endoscopies but reluctant to attempt bowel prep which would likely set off bleeding again Plan: -- Stop solids. Resume as full liquids -- Continue Miralax to prevent hard traumatic stool passage -- May need to defer EGD and colonoscopy from Thursday to next week Problem List - Problems (1) GIB (gastrointestinal bleeding) Code(s): K92.2 - GASTROINTESTINAL HEMORRHAGE, UNSPECIFIED (2) History of adenomatous polyp of colon Code(s): Z86.010 - PERSONAL HISTORY OF COLONIC POLYPS (3) Diverticulosis Code(s): K57.90 - DVRTCLOS OF INTEST, PART UNSP, W/O PERF OR ABSCESS W/O BLEED (4) Hematochezia Code(s): K92.1 - MELENA (6) S/P coronary artery stent placement Code(s): Z95.5 - PRESENCE OF CORONARY ANGIOPLASTY IMPLANT AND GRAFT
--- NOTE | 2018-08-25 15:20 | PN ---
Progress Note, Physician History of Present Illness: Recurrent rectal bleeding last night and again this AM with Hb drop to 6.5 and orthostatic. Blood is being transfused on clear liquid diet. Plan for EGD/ colonoscopy next week. - Current Medication List Current Medications: Active Medications Bisacodyl (Dulcolax -) 20 mg PO ONCE ONE Stop: 08/26/18 18:01 Clopidogrel Bisulfate (Plavix -) 75 mg PO DAILY [facility] Last Admin: 08/25/18 09:01 Dose: 75 mg Dextrose/Sodium Chloride (D5-1/2ns -) 1,000 mls @ 80 mls/hr IV ASDIR [facility] Metoprolol Succinate (Toprol Xl -) 25 mg PO DAILY [facility] Last Admin: 08/25/18 09:01 Dose: 25 mg Pantoprazole Sodium (Protonix Iv) 40 mg IVPUSH DAILY [facility] Last Admin: 08/25/18 09:01 Dose: 40 mg Polyethylene Glycol (Miralax (For Daily Use) -) 17 gm PO BID [facility] Last Admin: 08/25/18 09:01 Dose: Not Given Polyethylene Glycol/Electrolytes (Golytely Solution -) 4,000 ml PO ONCE ONE Stop: 08/26/18 09:01 - Objective Vital Signs: Vital Signs Temperature 98.1 F 08/25/18 10:00 Pulse Rate 88 08/25/18 10:00 Respiratory Rate 18 08/25/18 10:00 Blood Pressure 110/48 L 08/25/18 10:00 O2 Sat by Pulse Oximetry (%) 98 08/25/18 10:00 Constitutional: Yes: No Distress, Calm, Thin Neck: Yes: Supple Cardiovascular: Yes: Regular Rate and Rhythm Respiratory: Yes: Regular, CTA Bilaterally Gastrointestinal: Yes: Soft, Hypoactive Bowel Sounds, Rectal Bleeding Edema: No Labs: CBC, BMP 08/25/18 06:30 08/24/18 13:20 INR, PTT INR 1.03 (0.83-1.09) 08/24/18 13:20 - ....Imaging EKG: Report Reviewed (Tele: NSR) Problem List - Problems (1) Hypertensive cardiovascular disease Code(s): I11.9 - HYPERTENSIVE HEART DISEASE WITHOUT HEART FAILURE Qualifiers: Heart failure presence: without heart failure Qualified Code(s): I11.9 - Hypertensive heart disease without heart failure (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 Pre-procedure cardiovascular evaluation prior to EGD/colonoscopy 2. Hematochezia suspect diverticular bleed on Plavix 3. Previous h/o bleeding PUD 4. CAD s/p IWMI s/p VLADIMIR distal RCA 06/2018 5. Hyperlipidemia with multiple drug intolerances, but does tolerate Livalo 2 qod 6. Hypertensive cardiovascular disease P:1. Monitor Hgb and transfuse as needed to maintain Hgb>8.0, IVF 2. Given recent LHC and revascularization without recurrent symptoms of acute coronary syndrome, decompensated CHF or malignant arrhythmia, may proceed with EGD and colonoscopy from CV-standpoint without further testing. Regarding DAPT management, ASA d/elaina with continued Plavix 75 qd to decrease stent thrombosis risk 3. Continue Plavix 75 qd, Protonix 40 qd, Toprol XL 25 qd, resume losartan 25 qd as hemodynamics tolerate
[2018-08-26 04:18] LABS: SERUM IRON SATURATION 37 % (15-55); TOTAL IRON BINDING CAPACITY 193 ug/dL (250-450); UIBC 121 ug/dL (118-369)
[2018-08-26 07:28] LABS: BASO % 0.6 % (0-2.0); EOS % 5.3 % (0-4.5); HEMATOCRIT 24.7 % (32.4-45.2); HEMOGLOBIN 8.9 GM/dL (10.7-15.3); MCH 32.4 pg (25.7-33.7); MCHC 35.9 g/dl (32.0-36.0); MEAN CELL VOLUME 90.2 fl (80-96); MONO % 12.3 % (3.8-10.2); NEUT % 56.8 % (42.8-82.8); PLATELET COUNT 218 K/MM3 (134-434); RBC 2.74 M/mm3 (3.60-5.2); RDW 13.6 % (11.6-15.6)
[2018-08-26 07:45] LABS: ANION GAP 5 MMOL/L (8-16); BLOOD UREA NITROGEN 10 mg/dL (7-18); CALCIUM 8.1 mg/dL (8.5-10.1); CHLORIDE 104 mmol/L (98-107); CO2 28 mmol/L (21-32); CREATININE 0.7 mg/dL (0.55-1.3); GLUCOSE,RANDOM 99 mg/dL (74-106); POTASSIUM 3.6 mmol/L (3.5-5.1); SODIUM 137 mmol/L (136-145)
[2018-08-26] MEDS ORDERED: PEG 3350/NA SULF BICARB CL/KCL 4000 ML SOLN.RECON PO ONE (09:00)
[2018-08-26] MEDS: DEXTROSE 5%-0.45% SALINE 1,000 ML IV SCH (11:03)
[2018-08-26] MEDS: metoPROLOL SUCCINATE 25 MG TAB.SR.24H (FP) PO SCH (11:03)
[2018-08-26] MEDS: CLOPIDOGREL BISULFATE 75 MG TABLET (FP) PO SCH (11:03)
[2018-08-26] MEDS: POLYETHYLENE GLYCOL 3350 119 GM BTL PO SCH (11:03)
[2018-08-26] MEDS: PANTOPRAZOLE SODIUM 40 MG VIAL IVPUSH SCH (11:03)
--- NOTE | 2018-08-26 11:14 | PN ---
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 no abd pain no chest pain or SOB s/p 2 units PRBC Vital Signs - 24 hr 08/25/18 08/25/18 08/25/18 15:16 18:00 21:00 Temperature 98.3 F 97.8 F Pulse Rate 76 77 Respiratory 18 18 Rate Blood Pressure 105/59 L 124/54 L O2 Sat by Pulse 97 Oximetry (%) 08/25/18 08/26/18 08/26/18 22:30 02:00 06:23 Temperature 98.3 F 98.3 F 98.1 F Pulse Rate 78 72 72 Respiratory 18 20 20 Rate Blood Pressure 155/78 127/52 L 130/50 L O2 Sat by Pulse Oximetry (%) Current Medications Generic Name Dose Route Start Last Admin Trade Name Freq PRN Reason Stop Dose Admin Bisacodyl 20 mg 08/26/18 18:00 Dulcolax - PO 08/26/18 18:01 ONCE ONE Clopidogrel Bisulfate 75 mg 08/23/18 10:00 08/26/18 11:03 Plavix - PO 75 mg DAILY [facility] Administration Dextrose/Sodium Chloride 1,000 mls @ 50 mls/hr 08/26/18 09:11 08/26/18 11:03 D5-1/2ns - IV 50 mls/hr ASDIR [facility] Administration Metoprolol Succinate 25 mg 08/23/18 10:00 08/26/18 11:03 Toprol Xl - PO 25 mg DAILY [facility] Administration Pantoprazole Sodium 40 mg 08/23/18 10:00 08/26/18 11:03 Protonix Iv IVPUSH 40 mg DAILY [facility] Administration Polyethylene Glycol 17 gm 08/24/18 22:00 08/26/18 11:03 Miralax (For Daily Use) - PO 17 grams BID [facility]ENE Administration Laboratory Results - last 24 hr 08/25/18 08/25/18 08/26/18 06:30 08:35 06:30 WBC 6.0 RBC 2.74 L Hgb 8.9 L Hct 24.7 L D MCV 90.2 MCH 32.4 MCHC 35.9 RDW 13.6 D Plt Count 218 MPV 9.0 Absolute Neuts (auto) 3.4 Neutrophils % 56.8 Lymphocytes % 25.0 Monocytes % 12.3 H Eosinophils % 5.3 H Basophils % 0.6 Nucleated RBC % 0 Sodium Potassium Chloride Carbon Dioxide Anion Gap BUN Creatinine Creat Clearance w eGFR Random Glucose Calcium Iron 72 TIBC 193 L Iron Saturation 37 Blood Type A POSITIVE Antibody Screen Negative Crossmatch See Detail 08/26/18 06:30 WBC RBC Hgb Hct MCV MCH MCHC RDW Plt Count MPV Absolute Neuts (auto) Neutrophils % Lymphocytes % Monocytes % Eosinophils % Basophils % Nucleated RBC % Sodium 137 Potassium 3.6 Chloride 104 Carbon Dioxide 28 Anion Gap 5 L BUN 10 Creatinine 0.7 Creat Clearance w eGFR > 60 Random Glucose 99 Calcium 8.1 L Iron TIBC Iron Saturation Blood Type Antibody Screen Crossmatch S1 S2 RRR No pallor Lungs clear Abd- soft, NT no edema PLAN s/p 2 units of PRBC liquid diet possible diverticular bleed pt will need to stay on Plavix per cardiology She is being prepped for colonoscopy tomorrow if rebleeds, do a stat CBC and will transfuse if needed Problem List - Problems (1) Diverticulosis Code(s): K57.90 - DVRTCLOS OF INTEST, PART UNSP, W/O PERF OR ABSCESS W/O BLEED (2) GIB (gastrointestinal bleeding) Code(s): K92.2 - GASTROINTESTINAL HEMORRHAGE, UNSPECIFIED (3) Hypertensive cardiovascular disease Code(s): I11.9 - HYPERTENSIVE HEART DISEASE WITHOUT HEART FAILURE Qualifiers: Heart failure presence: without heart failure Qualified Code(s): I11.9 - Hypertensive heart disease without heart failure (4) Hyperlipidemia Code(s): E78.5 - HYPERLIPIDEMIA, UNSPECIFIED Qualifiers: Hyperlipidemia type: pure hypercholesterolemia Qualified Code(s): E78.00 - Pure hypercholesterolemia, unspecified; E78.0 - Pure hypercholesterolemia (5) S/P coronary artery stent placement Code(s): Z95.5 - PRESENCE OF CORONARY ANGIOPLASTY IMPLANT AND GRAFT
--- NOTE | 2018-08-26 12:15 | PN ---
Progress Note, Physician History of Present Illness: Recurrent rectal bleeding this AM s/p 2 U pRBC transfusion on clear liquid diet. Plan is for colonoscopy tomorrow, undergoing prep. - Current Medication List Current Medications: Active Medications Bisacodyl (Dulcolax -) 20 mg PO ONCE ONE Stop: 08/26/18 18:01 Clopidogrel Bisulfate (Plavix -) 75 mg PO DAILY [facility] Last Admin: 08/26/18 11:03 Dose: 75 mg Dextrose/Sodium Chloride (D5-1/2ns -) 1,000 mls @ 50 mls/hr IV ASDIR [facility] Last Admin: 08/26/18 11:03 Dose: 50 mls/hr Metoprolol Succinate (Toprol Xl -) 25 mg PO DAILY [facility] Last Admin: 08/26/18 11:03 Dose: 25 mg Pantoprazole Sodium (Protonix Iv) 40 mg IVPUSH DAILY [facility] Last Admin: 08/26/18 11:03 Dose: 40 mg Polyethylene Glycol (Miralax (For Daily Use) -) 17 gm PO BID [facility] Last Admin: 08/26/18 11:03 Dose: 17 grams - Objective Vital Signs: Vital Signs Temperature 98.1 F 08/26/18 06:23 Pulse Rate 72 08/26/18 06:23 Respiratory Rate 20 08/26/18 06:23 Blood Pressure 130/50 L 08/26/18 06:23 O2 Sat by Pulse Oximetry (%) 97 08/25/18 21:00 Constitutional: Yes: No Distress, Calm, Thin Neck: Yes: Supple Cardiovascular: Yes: Regular Rate and Rhythm Respiratory: Yes: Regular, CTA Bilaterally Gastrointestinal: Yes: Soft, Hypoactive Bowel Sounds, Rectal Bleeding Edema: No Labs: CBC, BMP 08/26/18 06:30 08/26/18 06:30 INR, PTT INR 1.03 (0.83-1.09) 08/24/18 13:20 - ....Imaging EKG: Report Reviewed (Tele: NSR) Problem List - Problems (1) Hypertensive cardiovascular disease Code(s): I11.9 - HYPERTENSIVE HEART DISEASE WITHOUT HEART FAILURE Qualifiers: Heart failure presence: without heart failure Qualified Code(s): I11.9 - Hypertensive heart disease without heart failure (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 Pre-procedure cardiovascular evaluation prior to EGD/colonoscopy 2. Hematochezia suspect diverticular bleed on Plavix 3. Previous h/o bleeding PUD 4. CAD s/p IWMI s/p VLADIMIR distal RCA 06/2018 5. Hyperlipidemia with multiple drug intolerances, but does tolerate Livalo 2 qod 6. Hypertensive cardiovascular disease P:1. Monitor Hgb and transfuse as needed to maintain Hgb>8.0, IVF 2. Given recent LHC and revascularization without recurrent symptoms of acute coronary syndrome, decompensated CHF or malignant arrhythmia, may proceed with EGD and colonoscopy from CV-standpoint without further testing. Regarding DAPT management, ASA d/elaina with continued Plavix 75 qd to decrease stent thrombosis risk 3. Continue Plavix 75 qd, Protonix 40 qd, Toprol XL 25 qd, resume losartan 25 qd as hemodynamics tolerate
[2018-08-26] MEDS ORDERED: BISACODYL 5 MG TABLET.DR (FP) PO ONE (18:00)
--- NOTE | 2018-08-26 20:13 | PN ---
GI Progress Note Subjective: GI NOte: Shari completed her bowel prep without a major hemorrhage. I discussed her situation with her niece with her permission - Objective Vital Signs: Vital Signs Temperature 97.4 F L 08/26/18 14:21 Pulse Rate 68 08/26/18 14:21 Respiratory Rate 20 08/26/18 14:21 Blood Pressure 170/57 L 08/26/18 14:21 O2 Sat by Pulse Oximetry (%) 96 08/26/18 10:00 CBC,CMP WBC 6.0 K/mm3 (4.0-10.0) 08/26/18 06:30 RBC 2.74 M/mm3 (3.60-5.2) L 08/26/18 06:30 Hgb 8.9 GM/dL (10.7-15.3) L 08/26/18 06:30 Hct 24.7 % (32.4-45.2) L D 08/26/18 06:30 MCV 90.2 fl (80-96) 08/26/18 06:30 MCH 32.4 pg (25.7-33.7) 08/26/18 06:30 MCHC 35.9 g/dl (32.0-36.0) 08/26/18 06:30 RDW 13.6 % (11.6-15.6) D 08/26/18 06:30 Plt Count 218 K/MM3 (134-434) 08/26/18 06:30 MPV 9.0 fl (7.5-11.1) 08/26/18 06:30 Absolute Neuts (auto) 3.4 K/mm3 (1.5-8.0) 08/26/18 06:30 Neutrophils % 56.8 % (42.8-82.8) 08/26/18 06:30 Lymphocytes % 25.0 % (8-40) 08/26/18 06:30 Monocytes % 12.3 % (3.8-10.2) H 08/26/18 06:30 Eosinophils % 5.3 % (0-4.5) H 08/26/18 06:30 Basophils % 0.6 % (0-2.0) 08/26/18 06:30 Nucleated RBC % 0 % (0-0) 08/26/18 06:30 Retic Count 1.19 % (0.5-1.5) 08/25/18 06:30 Sodium 137 mmol/L (136-145) 08/26/18 06:30 Potassium 3.6 mmol/L (3.5-5.1) 08/26/18 06:30 Chloride 104 mmol/L (98-107) 08/26/18 06:30 Carbon Dioxide 28 mmol/L (21-32) 08/26/18 06:30 Anion Gap 5 MMOL/L (8-16) L 08/26/18 06:30 BUN 10 mg/dL (7-18) 08/26/18 06:30 Creatinine 0.7 mg/dL (0.55-1.3) 08/26/18 06:30 Creat Clearance w eGFR > 60 (>60) 08/26/18 06:30 Random Glucose 99 mg/dL (74-106) 08/26/18 06:30 Calcium 8.1 mg/dL (8.5-10.1) L 08/26/18 06:30 Iron 72 ug/dL (27-139) 08/25/18 06:30 TIBC 193 ug/dL (250-450) L 08/25/18 06:30 Iron Saturation 37 % (15-55) 08/25/18 06:30 Ferritin 114.0 ng/ml (8-388) 08/25/18 06:30 Total Bilirubin 0.3 mg/dL (0.2-1) 08/23/18 06:30 AST 12 U/L (15-37) L 08/23/18 06:30 ALT 19 U/L (13-61) 08/23/18 06:30 Alkaline Phosphatase 100 U/L (45-117) 08/23/18 06:30 Troponin I < 0.02 ng/ml (0.00-0.05) 08/22/18 08:44 Total Protein 6.5 g/dl (6.4-8.2) 08/23/18 06:30 Albumin 3.4 g/dl (3.4-5.0) 08/23/18 06:30 Constitutional: No Distress ...Auscultate: Yes: Hyperactive Bowel Sounds ...Palpate: Yes: Soft, Other (nontender) Labs: CBC, BMP 08/26/18 06:30 08/26/18 06:30 INR, PTT INR 1.03 (0.83-1.09) 08/24/18 13:20 Assessment/Plan Impression: Recurring diverticular bleeding Cardiologically cleared for endoscopies Plan: -- For EGD and colonoscopy tomorrow Problem List - Problems (1) GIB (gastrointestinal bleeding) Code(s): K92.2 - GASTROINTESTINAL HEMORRHAGE, UNSPECIFIED (2) History of adenomatous polyp of colon Code(s): Z86.010 - PERSONAL HISTORY OF COLONIC POLYPS (3) Diverticulosis Code(s): K57.90 - DVRTCLOS OF INTEST, PART UNSP, W/O PERF OR ABSCESS W/O BLEED (4) Hematochezia Code(s): K92.1 - MELENA (6) S/P coronary artery stent placement Code(s): Z95.5 - PRESENCE OF CORONARY ANGIOPLASTY IMPLANT AND GRAFT
[2018-08-27] MEDS: DEXTROSE 5%-0.45% SALINE 1,000 ML IV SCH ×2 (05:42→09:56)
[2018-08-27 06:41] LABS: BASO % 0.9 % (0-2.0); EOS % 5.8 % (0-4.5); HEMATOCRIT 24.5 % (32.4-45.2); HEMOGLOBIN 8.9 GM/dL (10.7-15.3); LYMPH % 25.7 % (8-40); MCH 32.9 pg (25.7-33.7); MCHC 36.2 g/dl (32.0-36.0); MEAN CELL VOLUME 90.9 fl (80-96); MEAN PLT VOLUME 8.6 fl (7.5-11.1); MONO % 10.7 % (3.8-10.2); NEUT % 56.9 % (42.8-82.8); PLATELET COUNT 230 K/MM3 (134-434); RDW 13.3 % (11.6-15.6); WHITE BLOOD COUNT 5.5 K/mm3 (4.0-10.0)
[2018-08-27 06:47] LABS: ANION GAP 5 MMOL/L (8-16); BLOOD UREA NITROGEN 6 mg/dL (7-18); CALCIUM 8.5 mg/dL (8.5-10.1); CHLORIDE 104 mmol/L (98-107); CO2 29 mmol/L (21-32); CREATININE 0.7 mg/dL (0.55-1.3); GLUCOSE,RANDOM 97 mg/dL (74-106); POTASSIUM 3.7 mmol/L (3.5-5.1); SODIUM 138 mmol/L (136-145)
[2018-08-27] MEDS: CLOPIDOGREL BISULFATE 75 MG TABLET (FP) PO SCH (09:56)
[2018-08-27] MEDS: PANTOPRAZOLE SODIUM 40 MG VIAL IVPUSH SCH (09:56)
[2018-08-27] MEDS: metoPROLOL SUCCINATE 25 MG TAB.SR.24H (FP) PO SCH (09:56)
--- NOTE | 2018-08-27 10:53 | PN ---
Progress Note, Physician History of Present Illness: No further rectal bleeding and tolerated bowel prep. She is s/p 2 U pRBC transfusion with stable Hgb and NPO for EGD/colonoscopy today. - Current Medication List Current Medications: Active Medications Clopidogrel Bisulfate (Plavix -) 75 mg PO DAILY [facility] Last Admin: 08/27/18 09:56 Dose: 75 mg Dextrose/Sodium Chloride (D5-1/2ns -) 1,000 mls @ 50 mls/hr IV ASDIR [facility] Last Admin: 08/27/18 09:56 Dose: 50 mls/hr Metoprolol Succinate (Toprol Xl -) 25 mg PO DAILY [facility] Last Admin: 08/27/18 09:56 Dose: 25 mg Pantoprazole Sodium (Protonix Iv) 40 mg IVPUSH DAILY [facility] Last Admin: 08/27/18 09:56 Dose: 40 mg - Objective Vital Signs: Vital Signs Temperature 97.9 F 08/27/18 05:43 Pulse Rate 70 08/27/18 05:43 Respiratory Rate 16 08/27/18 05:43 Blood Pressure 133/59 L 08/27/18 05:43 O2 Sat by Pulse Oximetry (%) 96 08/26/18 21:00 Constitutional: Yes: No Distress, Calm, Thin Neck: Yes: Supple Cardiovascular: Yes: Regular Rate and Rhythm Respiratory: Yes: Regular, CTA Bilaterally Gastrointestinal: Yes: Soft, Hypoactive Bowel Sounds Edema: No Labs: CBC, BMP 08/27/18 06:00 08/27/18 06:00 INR, PTT INR 1.03 (0.83-1.09) 08/24/18 13:20 - ....Imaging EKG: Report Reviewed (Tele: NSR) Problem List - Problems (1) Hypertensive cardiovascular disease Code(s): I11.9 - HYPERTENSIVE HEART DISEASE WITHOUT HEART FAILURE Qualifiers: Heart failure presence: without heart failure Qualified Code(s): I11.9 - Hypertensive heart disease without heart failure (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 Pre-procedure cardiovascular evaluation prior to EGD/colonoscopy 2. Hematochezia suspect diverticular bleed on Plavix 3. Previous h/o bleeding PUD 4. CAD s/p IWMI s/p VLADIMIR distal RCA 06/2018 5. Hyperlipidemia with multiple drug intolerances, but does tolerate Livalo 2 qod 6. Hypertensive cardiovascular disease P:1. Monitor Hgb and transfuse as needed to maintain Hgb>8.0, IVF 2. Given recent LHC and revascularization without recurrent symptoms of acute coronary syndrome, decompensated CHF or malignant arrhythmia, may proceed with EGD and colonoscopy from CV-standpoint without further testing. Regarding DAPT management, ASA d/elaina with continued Plavix 75 qd to decrease stent thrombosis risk 3. Continue Plavix 75 qd, Protonix 40 qd, Toprol XL 25 qd, resume losartan 25 qd as hemodynamics tolerate
--- NOTE | 2018-08-27 13:00 | PN ---
Progress Note (short form) - Note Progress Note: Vital Signs Temp 97.9 F 08/27/18 05:43 Pulse 70 08/27/18 05:43 Resp 16 08/27/18 05:43 BP 133/59 L 08/27/18 05:43 Pulse Ox 96 08/26/18 21:00 Intake & Output 08/26/18 08/27/18 08/27/18 23:59 11:59 23:59 Intake Total 350 600 10 Balance 350 600 10 Intake: IV 200 600 10 D5-1/2Ns - 1,000 ml @ 50 200 600 mls/hr IV ASDIR [facility] Rx#: [id number] Oral 150 Other: Voiding Method Toilet Toilet # Unmeasured Voids Void 7 1 Bowel Movement Yes Yes: clear # Bowel Movements 7 1 Active Medications Clopidogrel Bisulfate (Plavix -) 75 mg PO DAILY [facility] Last Admin: 08/27/18 09:56 Dose: 75 mg Dextrose/Sodium Chloride (D5-1/2ns -) 1,000 mls @ 50 mls/hr IV ASDIR [facility] Last Admin: 08/27/18 09:56 Dose: 50 mls/hr Metoprolol Succinate (Toprol Xl -) 25 mg PO DAILY [facility] Last Admin: 08/27/18 09:56 Dose: 25 mg Pantoprazole Sodium (Protonix Iv) 40 mg IVPUSH DAILY [facility] Last Admin: 08/27/18 09:56 Dose: 40 mg CBC, BMP 08/27/18 06:00 08/27/18 06:00 Problem List - Problems (1) GIB (gastrointestinal bleeding) Code(s): K92.2 - GASTROINTESTINAL HEMORRHAGE, UNSPECIFIED (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
--- NOTE | 2018-08-27 17:35 | PN ---
Progress Note (short form) - Note Progress Note: s/p egd/ colonoscopy findings noted comfortable eating dinner denies pain Vital Signs Temp 97.5 F L 08/27/18 14:00 Pulse 68 08/27/18 14:00 Resp 18 08/27/18 14:00 BP 172/56 H 08/27/18 14:00 Pulse Ox 100 08/27/18 13:46 Intake & Output 08/26/18 08/27/18 08/27/18 23:59 11:59 23:59 Intake Total 350 600 760 Balance 350 600 760 Intake: IV 200 600 360 D5-1/2Ns - 1,000 ml @ 50 200 600 350 mls/hr IV ASDIR [facility] Rx#: [id number] Oral 150 400 Other: Voiding Method Toilet Toilet Toilet # Unmeasured Voids Void 7 1 2 Bowel Movement Yes Yes: clear Yes # Bowel Movements 7 1 1 Active Medications Clopidogrel Bisulfate (Plavix -) 75 mg PO DAILY [facility] Last Admin: 08/27/18 09:56 Dose: 75 mg Metoprolol Succinate (Toprol Xl -) 25 mg PO DAILY [facility] Last Admin: 08/27/18 09:56 Dose: 25 mg Pantoprazole Sodium (Protonix -) 40 mg PO BID [facility] CBC, BMP 08/27/18 06:00 08/27/18 06:00 ' PHYSICAL AWAKE/ COMFORTABLE S1 S2 RRR No pallor Lungs clear Abd- soft, NT. BS + no edema PLAN s/p EGD/COLONOSCOPY MONITOR pt will need to stay on Plavix per cardiology-- with caution. f/u cbc d/c fluids avoids nsaids. will follow discussed with nursing staff. 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
[2018-08-27] MEDS: PANTOPRAZOLE 40 MG TABLET (FP) PO SCH (21:00)
[2018-08-28 06:53] LABS: BASO % 0.9 % (0-2.0); EOS % 3.6 % (0-4.5); HEMATOCRIT 24.7 % (32.4-45.2); HEMOGLOBIN 8.7 GM/dL (10.7-15.3); LYMPH % 21.1 % (8-40); MCH 32.8 pg (25.7-33.7); MCHC 35.3 g/dl (32.0-36.0); MEAN CELL VOLUME 93.1 fl (80-96); MEAN PLT VOLUME 8.9 fl (7.5-11.1); MONO % 9.2 % (3.8-10.2); NEUT % 65.2 % (42.8-82.8); PLATELET COUNT 250 K/MM3 (134-434); RBC 2.66 M/mm3 (3.60-5.2); RDW 13.1 % (11.6-15.6); WHITE BLOOD COUNT 7.3 K/mm3 (4.0-10.0)
[2018-08-28] MEDS ORDERED: PT OWN MED DRAWER 7, Y5N ONE (07:01)
[2018-08-28] MEDS: CLOPIDOGREL BISULFATE 75 MG TABLET (FP) PO SCH (10:19)
[2018-08-28] MEDS: PANTOPRAZOLE 40 MG TABLET (FP) PO SCH ×2 (10:19→21:49)
[2018-08-28] MEDS: metoPROLOL SUCCINATE 25 MG TAB.SR.24H (FP) PO SCH (10:20)
--- NOTE | 2018-08-28 14:01 | PN ---
Progress Note (short form) - Note Progress Note: comfortable feels ok no further bleeding denies pain Vital Signs Temp 97.8 F 08/28/18 06:18 Pulse 69 08/28/18 06:18 Resp 16 08/28/18 06:18 BP 141/54 L 08/28/18 06:18 Pulse Ox 100 08/27/18 20:33 Intake & Output 08/27/18 08/28/18 08/28/18 23:59 11:59 23:59 Intake Total 1000 250 Balance 1000 250 Intake: IV 360 D5-1/2Ns - 1,000 ml @ 50 350 mls/hr IV ASDIR [facility] Rx#: [id number] Oral 640 250 Other: Voiding Method Toilet Toilet # Unmeasured Voids Void 1 3 Bowel Movement Yes # Bowel Movements 1 Active Medications Clopidogrel Bisulfate (Plavix -) 75 mg PO DAILY [facility] Last Admin: 08/28/18 10:19 Dose: 75 mg Metoprolol Succinate (Toprol Xl -) 25 mg PO DAILY [facility] Last Admin: 08/28/18 10:20 Dose: 25 mg Pantoprazole Sodium (Protonix -) 40 mg PO BID [facility] Last Admin: 08/28/18 10:19 Dose: 40 mg CBC, BMP 08/28/18 05:15 08/27/18 06:00 PHYSICAL Comfortable S1 S2 RRR No pallor Lungs clear Abd- soft, NT. BS + no edema PLAN s/p EGD/COLONOSCOPY MONITOR pt will need to stay on Plavix per cardiology-- with caution. f/u cbc avoids nsaids. 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
[2018-08-29 03:07] VITALS: TEMP 97.8
[2018-08-29 08:18] LABS: BASO % 0.8 % (0-2.0); EOS % 3.4 % (0-4.5); HEMATOCRIT 26.8 % (32.4-45.2); HEMOGLOBIN 9.7 GM/dL (10.7-15.3); LYMPH % 20.9 % (8-40); MCH 33.8 pg (25.7-33.7); MCHC 36.1 g/dl (32.0-36.0); MEAN CELL VOLUME 93.6 fl (80-96); MEAN PLT VOLUME 8.8 fl (7.5-11.1); MONO % 7.8 % (3.8-10.2); NEUT % 67.1 % (42.8-82.8); PLATELET COUNT 254 K/MM3 (134-434); RBC 2.86 M/mm3 (3.60-5.2); RDW 13.1 % (11.6-15.6); WHITE BLOOD COUNT 6.7 K/mm3 (4.0-10.0)
[2018-08-29] MEDS: metoPROLOL SUCCINATE 25 MG TAB.SR.24H (FP) PO SCH (09:04)
[2018-08-29] MEDS: CLOPIDOGREL BISULFATE 75 MG TABLET (FP) PO SCH (09:05)
[2018-08-29] MEDS: PANTOPRAZOLE 40 MG TABLET (FP) PO SCH (09:05)
[2018-08-29 10:00] VITALS: BP 138/59; PULSE 66
--- NOTE | 2018-08-29 10:56 | PN ---
Progress Note, Physician History of Present Illness: No further rectal bleeding, s/p 2 U pRBC transfusion with stable Hgb, EGD showed small gastric ulcers, colonoscopy showed severe sigmoid diverticulosis. - Current Medication List Current Medications: Active Medications Clopidogrel Bisulfate (Plavix -) 75 mg PO DAILY [facility] Last Admin: 08/29/18 09:05 Dose: 75 mg Metoprolol Succinate (Toprol Xl -) 25 mg PO DAILY [facility] Last Admin: 08/29/18 09:04 Dose: 25 mg Pantoprazole Sodium (Protonix -) 40 mg PO BID [facility] Last Admin: 08/29/18 09:05 Dose: 40 mg - Objective Vital Signs: Vital Signs Temperature 97.8 F 08/29/18 09:59 Pulse Rate 66 08/29/18 09:59 Respiratory Rate 20 08/29/18 09:59 Blood Pressure 138/59 L 08/29/18 09:59 O2 Sat by Pulse Oximetry (%) 99 08/29/18 09:00 Constitutional: Yes: No Distress, Calm, Thin Neck: Yes: Supple Cardiovascular: Yes: Regular Rate and Rhythm Respiratory: Yes: Regular, CTA Bilaterally Gastrointestinal: Yes: Normal Bowel Sounds, Soft Edema: No Labs: CBC, BMP 08/29/18 07:50 08/27/18 06:00 INR, PTT INR 1.03 (0.83-1.09) 08/24/18 13:20 - ....Imaging EKG: Report Reviewed (Tele: NSR) Problem List - Problems (1) Hypertensive cardiovascular disease Code(s): I11.9 - HYPERTENSIVE HEART DISEASE WITHOUT HEART FAILURE Qualifiers: Heart failure presence: without heart failure Qualified Code(s): I11.9 - Hypertensive heart disease without heart failure (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 Code(s): I25.2 - OLD MYOCARDIAL INFARCTION (3) Hematochezia Code(s): K92.1 - MELENA (4) Hyperlipidemia Code(s): E78.5 - HYPERLIPIDEMIA, UNSPECIFIED Qualifiers: Hyperlipidemia type: pure hypercholesterolemia Qualified Code(s): E78.00 - Pure hypercholesterolemia, unspecified; E78.0 - Pure hypercholesterolemia (5) S/P coronary artery stent placement Code(s): Z95.5 - PRESENCE OF CORONARY ANGIOPLASTY IMPLANT AND GRAFT (6) Diverticulosis Code(s): K57.90 - DVRTCLOS OF INTEST, PART UNSP, W/O PERF OR ABSCESS W/O BLEED Qualifiers: Diverticulosis site: diverticulosis of large intestine Diverticulosis bleeding: diverticulosis without bleeding Qualified Code(s): K57.30 - Diverticulosis of large intestine without perforation or abscess without bleeding Assessment/Plan 1. Small gastric ulcers and severe sigmoid diverticulosis 2. Hematochezia suspect diverticular bleed on Plavix 3. Previous h/o bleeding PUD 4. CAD s/p IWMI s/p VLADIMIR distal RCA 06/2018 5. Hyperlipidemia with multiple drug intolerances, but does tolerate Livalo 2 qod 6. Hypertensive cardiovascular disease P:1. Monitor Hgb and transfuse as needed to maintain Hgb>8.0 2. Regarding DAPT management, ASA d/elaina with continued Plavix 75 qd to decrease stent thrombosis risk 3. Continue Plavix 75 qd, Protonix 40 qd, Toprol XL 25 qd, resume losartan 25 qd as hemodynamics tolerate, avoid NSAIDs 4. D/c planning with f/u in office for cardiac rehab referral [place].
--- NOTE | 2018-08-29 11:08 | DS ---
Physical Examination Vital Signs: Vital Signs Temperature 97.8 F 08/29/18 09:59 Pulse Rate 66 08/29/18 09:59 Respiratory Rate 20 08/29/18 09:59 Blood Pressure 138/59 L 08/29/18 09:59 O2 Sat by Pulse Oximetry (%) 99 08/29/18 09:00 Findings/Remarks: comfortable. no issues no bleeding h/h stable Constitutional: Yes: No Distress, Calm Eyes: Yes: Conjunctiva Clear Neck: Yes: Supple Cardiovascular: Yes: Regular Rate and Rhythm Respiratory: Yes: CTA Bilaterally Gastrointestinal: Yes: Normal Bowel Sounds, Soft Edema: No Neurological: Yes: Alert Psychiatric: Yes: Alert Labs: CBC, BMP 08/29/18 07:50 08/27/18 06:00 Discharge Summary Reason For Visit: GASTROINTESTINAL HEMORRHAGE Current Active Problems Diverticulosis (Acute) GIB (gastrointestinal bleeding) (Acute) Hematochezia (Acute) History of adenomatous polyp of colon (Acute) Hypertensive cardiovascular disease (Acute) Old inferior wall myocardial infarction (Acute) Pre-procedural cardiovascular examination (Acute) Hospital Course: admitted for gi bleed transfused underwent egd/ colonoscopy-- report in file on asa/ plavix for recent cardiac stent asa held CONTINUE PLAVIX stable d/c home f/u in office one week avoid nsaids discussed with Dr. John also today meds reconcilled Condition: Stable - Instructions Referrals: Cierra Felipe MD [Primary Care Provider] - Disposition: HOME - Home Medications Comprehensive Discharge Medication List: Ambulatory Orders Clopidogrel Bisulfate [Plavix -] 75 mg PO DAILY 08/22/18 Hydrochlorothiazide [Hctz -] 12.5 mg PO DAILY 08/22/18 Losartan Potassium [Cozaar] 25 mg PO DAILY 08/22/18 Metoprolol Succinate [Toprol Xl] 25 mg PO DAILY 08/22/18 Pantoprazole Sodium [Protonix -] 40 mg PO BID 30 Days #60 tablet.ec 08/29/18
[2018-08-29] MEDS ORDERED: LOSARTAN POTASSIUM 25 MG TABLET PO SCH (11:30)
== END 2018-08-29 12:26 | disposition home or self-care (01) | DRG 378 ==
LOC: JER 07:39 → JERBED 09:16 → J4S 08-23 14:42
PROVIDERS: ADMIT Internal Medicine; ATTEND Internal Medicine
PROC: 30233N1 Transfusion of Nonautologous Red Blood Cells into Peripheral Vein, Percutaneous Approach (ICD-10-PCS; 2018-08-25)
PROC: 0DJD8ZZ Inspection of Lower Intestinal Tract, Via Natural or Artificial Opening Endoscopic (ICD-10-PCS; 2018-08-27)
PROC: 0DJ08ZZ Inspection of Upper Intestinal Tract, Via Natural or Artificial Opening Endoscopic (ICD-10-PCS; principal; 2018-08-27 12:15)
DX: K25.4 Chronic or unspecified gastric ulcer with hemorrhage (principal); D62 Acute posthemorrhagic anemia; I25.10 Atherosclerotic heart disease of native coronary artery without angina pectoris; K92.1 Melena; E78.5 Hyperlipidemia, unspecified; I25.2 Old myocardial infarction; M10.9 Gout, unspecified; I11.9 Hypertensive heart disease without heart failure; K57.30 Diverticulosis of large intestine without perforation or abscess without bleeding; K44.9 Diaphragmatic hernia without obstruction or gangrene; K63.5 Polyp of colon; K64.8 Other hemorrhoids; Z95.5 Presence of coronary angioplasty implant and graft; Z01.810 Encounter for preprocedural cardiovascular examination; Z87.11 Personal history of peptic ulcer disease
CPT/HCPCS: 36415; 36430; 36511; 71045-TC-FY; 74174-TC; 80048; 80053; 82272; 82728; 83540; 83550; 84484; 85025; 85027; 85044; 85610; 85730; 86850; 86900; 86901; 86922; 93005; 93010; 99285-25; P9038; P9058

== ENCOUNTER 2020-03-02 04:57 | Day surgery (SDC) | payer OTHER, BC ==
[2020-03-02 09:40] VITALS: BMI 23.0
[2020-03-02 11:58] VITALS: TEMP 96.9
[2020-03-02 13:00] VITALS: BP 161/74; PULSE 59
--- NOTE | 2020-03-05 15:07 | PATH ---
Surgical Pathology Report Patient Name: ADIS SHEA [facility]. Rec. #: [id number] /Age/Gender: 1930 (Age: 89) / F Account: [id number] Location: [facility]-ENDOSCOPY Taken: 03/02/2020 Received: 03/02/2020 Reported: 03/05/2020 Physicians: Claudia Crabtree M.D. Specimen(s) Received A: DUODENUM BULB AND SECOND PORTION OF DUODENUM B: GASTRIC ANTRUM C: SIGMOID Clinical History Rule out persistent polyps Final Diagnosis A. DUODENAL BULB AND SECOND PORTION, BIOPSY: DUODENAL MUCOSA WITH CHRONIC DUODENITIS SHOWING INCREASED CHRONIC INFLAMMATORY CELLS IN THE LAMINA PROPRIA, MELISSA'S GLAND HYPERPLASIA, AND FOCAL VILLOUS BLUNTING. NO EVIDENCE OF INCREASED INTRAEPITHELIAL LYMPHOCYTOSIS. B. GASTRIC ANTRUM, BIOPSY: GASTRIC MUCOSA WITH CHRONIC GASTRITIS. IMMUNOSTAIN FOR H. PYLORI IS NEGATIVE. NEGATIVE FOR INTESTINAL METAPLASIA. C. SIGMOID POLYPS, BIOPSY: HYPERPLASTIC POLYP, TWO FRAGMENTS. Electronically Signed Chelsea Lutz M.D. Gross Description A. Received in formalin, labeled "duodenum bulb and second portion" are 4 tello, irregular portions of soft tissue ranging from 0.1-0.2 cm. in greatest dimension. The specimens are submitted in toto in one cassette. B. Received in formalin, labeled "gastric antrum" are 4 tello, irregular portions of soft tissue ranging from 0.2-0.5 cm. in greatest dimension. The specimens are submitted in toto in one cassette. C. Received in formalin, labeled "sigmoid polyp" are 2 tello, irregular portions of soft tissue measuring 0.3 and 0.4 cm. in greatest dimension. The specimens are submitted in toto in one cassette. /03/02/2020 saudi/03/02/2020
== END 2020-03-02 13:00 | disposition home or self-care (01) ==
LOC: JASU-ENDO 04:57
PROVIDERS: ATTEND Internal Medicine Gastroenterology
PROC: 0DB98ZX Excision of Duodenum, Via Natural or Artificial Opening Endoscopic, Diagnostic (ICD-10-PCS; 2020-03-02)
PROC: 0DB68ZX Excision of Stomach, Via Natural or Artificial Opening Endoscopic, Diagnostic (ICD-10-PCS; 2020-03-02)
PROC: 0DBN8ZX Excision of Sigmoid Colon, Via Natural or Artificial Opening Endoscopic, Diagnostic (ICD-10-PCS; principal; 2020-03-02 10:00)
DX: Z86.010 Personal history of colon polyps (principal); Z80.0 Family history of malignant neoplasm of digestive organs; K25.9 Gastric ulcer, unspecified as acute or chronic, without hemorrhage or perforation; K64.8 Other hemorrhoids; K57.30 Diverticulosis of large intestine without perforation or abscess without bleeding; D12.5 Benign neoplasm of sigmoid colon; K29.50 Unspecified chronic gastritis without bleeding; K44.9 Diaphragmatic hernia without obstruction or gangrene
CPT/HCPCS: 88305-TC; 88342-TC